=== PATIENT | male | born 1995 | race Hispanic/Latino ===

== ENCOUNTER 2024-02-27 08:31 | Emergency (ER) | payer OTHER ==
[~2024-02-27] VITALS: Ht 188 cm; Wt 90.7 kg
[2024-02-27] VITALS (7 sets, daily range): BP systolic 101–134; BP diastolic 46–85
[2024-02-27 09:51] LABS: BASO% 0.7 % (0-3); HEMATOCRIT 47.2 % (39.0-50.0); HEMOGLOBIN 15.8 g/dl (14.0-18.0); IMMATURE GRANULOCYTES 0.2 % (0.0-5.0); LYMPH% 32.3 % (15-41); MEAN CELL VOLUME 84.3 fL CALC (80.0-100.0); MEAN CORPUSCULAR HGB 28.2 pG CALC (26.0-32.0); MEAN CORPUSCULAR HGB CONC 33.5 g/dL CAL (32.0-36.0); MONO% 9.4 % (2-13); NEUT# 3.07 thou/uL (1.82-7.42); NEUT% 54.4 % (42-76); RED BLOOD COUNT 5.6 mill/uL (4.70-6.10); RED CELL DISTRI WIDTH 12.6 % (11.5-15.5)
[2024-02-27 10:00] LABS: ALBUMIN 4.8 g/dL (3.2-5.0); ALKALINE PHOSPHATASE 63 u/l (38-126); ANION GAP 14 (6-22 (CALC)); BILIRUBIN, TOTAL 0.6 mg/dL (0.2-1.3); BUN 23 mg/dL (9-20); BUN/CREATININE RATIO 23 (12-20 (CALC)); CARBON DIOXIDE 28 mmol/l (22-30); CHLORIDE 102 mmol/l (95-108); ESTIMATED GFR 104 ML/MIN (>=90 (CALC)); SGOT/AST 106 u/l (17-59); SODIUM 140 mmol/l (137-146); TOTAL PROTEIN 7.8 g/dL (6.3-8.2)
[2024-02-27 10:01] LABS: C-REACTIVE PROTEIN < 0.5 mg/dL (0-0.9)
[2024-02-27 10:31] LABS: URINE BILIRUBIN - DIPSTICK Negative (NEGATIVE); URINE BLOOD DIPSTICK Negative (NEGATIVE); URINE GLUCOSE - DIPSTICK Negative (NEGATIVE); URINE KETONE Negative (NEGATIVE); URINE LEUK ESTERASE Negative (NEGATIVE); URINE NITRITE - DIPSTICK Negative (Negative); URINE PROTEIN - DIPSTICK Negative (NEG-TRACE); URINE UROBILINOGEN - DIPSTICK 0.2 E.U./dL (0.2)
[2024-02-27 10:32] LABS: URINE COLOR Yellow
== END 2024-02-27 12:13 | disposition home or self-care (01) | DRG 948 ==
LOC: ED 08:31
PROVIDERS: Family Medicine
DX: R74.01 Elevation of levels of liver transaminase levels (principal)